=== PATIENT | female | born 1960 | race Caucasian/White ===

== ENCOUNTER 2017-11-07 17:33 | Emergency (ER) | payer OTHER ==
[~2017-11-07] VITALS: Ht 165.1 cm; Wt 75.3 kg
[~2017-11-07 17:33] MED LIST: INDERAL LA160 MG PO; LEVAQUIN250 MG PO; LEVAQUIN500 MG PO; MACROBID100 MG PO; NEXIUM40 MG PO; OXYCODONE HCL30 MG PO; XANAX0.25 MG PO; ZOLOFT100 MG PO
[2017-11-07 19:58] VITALS: BP 129/77
== END 2017-11-07 19:58 | disposition home or self-care (01) ==
LOC: EME 17:33
DX: G89.29 Other chronic pain (principal); M79.7 Fibromyalgia; M06.9 Rheumatoid arthritis, unspecified; K21.9 Gastro-esophageal reflux disease without esophagitis; F41.9 Anxiety disorder, unspecified; F17.200 Nicotine dependence, unspecified, uncomplicated; Z88.2 Allergy status to sulfonamides
CPT/HCPCS: 99281; 99284